=== PATIENT | male | born 2005 | race Two or more races ===

== ENCOUNTER 2023-06-20 19:25 | Emergency (ER) | payer BC ==
[~2023-06-20] VITALS: Ht 185.4 cm; Wt 83.9 kg
[2023-06-20] MEDS ORDERED: CEFTRIAXONE SODIUM 1,000 MG VIAL IM STA (20:38)
[2023-06-20] MEDS ORDERED: KETOROLAC TROMETHAMINE 60 MG VIAL IM STA (21:08)
== END 2023-06-20 22:19 | disposition home or self-care (01) ==
LOC: EMR PED 19:26 → ER 19:26 → EMR PED 21:04
DX: J02.8 Acute pharyngitis due to other specified organisms (principal); Z20.822 Contact with and (suspected) exposure to COVID-19